=== PATIENT | female | born 1935 | race Caucasian/White ===

== ENCOUNTER → 2016-12-14 | Outpatient (CLI) | payer MEDICARE, OTHER | LOC: NC 09:23 | PROVIDERS: ATTEND Family Medicine | DX: I48.91 Unspecified atrial fibrillation (principal); I11.0 Hypertensive heart disease with heart failure; I50.9 Heart failure, unspecified; M06.00 Rheumatoid arthritis without rheumatoid factor, unspecified site; E03.9 Hypothyroidism, unspecified ==

== ENCOUNTER → 2017-05-27 | Outpatient (CLI) | payer MEDICARE, OTHER | END | disposition home or self-care (01) | LOC: NC 08:41 | PROVIDERS: ATTEND Family Medicine | DX: I50.9 Heart failure, unspecified (principal); I10 Essential (primary) hypertension; I48.91 Unspecified atrial fibrillation ==

== ENCOUNTER → 2017-09-29 | Outpatient (CLI) | payer MEDICARE, OTHER | END | disposition home or self-care (01) | LOC: GMA 17:19 | PROVIDERS: ATTEND Nurse Practitioner Family | DX: N39.0 Urinary tract infection, site not specified (principal); R10.84 Generalized abdominal pain ==

== ENCOUNTER → 2017-12-06 | Outpatient (CLI) | payer MEDICARE, OTHER ==
--- NOTE | 2017-12-06 15:33 | MRI ---
EXAM DESCRIPTION: Lumbar Spine w/o Contrast MRI. CLINICAL HISTORY: LUMBAR RADICULOPATHY COMPARISON: MRI lumbar spine 01/20/2011. TECHNIQUE: Multiplanar, multiple standard sequences, non contrast MRI, lumbar spine. FINDINGS: Patient has spondylosis and multiple levels of disc desiccation and facet degeneration. L1-L3 dextroscoliosis. L3-L5 levoscoliosis. L5-S1: Disc desiccation and trace posterior bulge with anterolisthesis. Mild bilateral facet arthrosis and posterior ligament hypertrophy. Mild right foraminal narrowing. Mild canal narrowing. L4-5: Disc desiccation posterior disc space loss. Accentuated disc space loss on the right contributing to scoliosis. Disc spur complex encroaching on the right foramen which is mildly stenotic. Moderate to severe right facet arthrosis. Mild canal narrowing and mild left foraminal narrowing. Hypertrophy of the posterior ligaments and mild arthrosis left facet. L3-4: Disc desiccation and minimal disc space loss. Posterior broad-based 3 mm disc bulge with mild canal narrowing. Bilateral ligament hypertrophy and facet arthrosis more right than left. Mild right foraminal narrowing. Mild to moderate left foraminal narrowing with disc abutting the nerve root. Schmorl's node in the endplates. L2-3: Severe disc space loss more on the left associated with dextroscoliosis. Anterior bulging of disc spur complex. Mild right foraminal narrowing, mild facet arthrosis and ligament hypertrophy. Narrowing of the transverse diameter of the canal. Minimal left ligament hypertrophy and facet arthrosis abutting the thecal sac. Moderate left foraminal narrowing with bony abutment of the nerve root. Conus terminates at L2. L1-2: Disc desiccation with significant disc space loss on the left associated with dextroscoliosis. Left side disc spur complex abutting the exiting nerve root with moderate foraminal narrowing. Right foramen is patent. Posterior ligament and facet hypertrophy more on the left. Anterior Modic type II endplate reactive changes anterior disc spur bulge. T12-L1: Disc desiccation with left side grade 1 Modic endplate reactive changes associated with dextroscoliosis. Posterior 4 mm disc bulge abutting the thoracic cord with mild to moderate canal narrowing. Moderate to severe foraminal narrowing. Right foramen patent. Bilateral facet and posterior ligament hypertrophy more on the left. T11-T12 disc also desiccated with minimal disc space loss minimal posterior bulge abutting the cord. Bright will circumscribed signal T11 vertebral body on all sequences. Paravertebral soft tissues show muscle atrophy.. Normal marrow signal in the draining vertebral bodies. Vertebral bodies are not compressed at any level. IMPRESSION: 1. Levels of spondylosis, degree of disc desiccation, degree of scoliosis, has increased since the prior study. 2. Right side disc spur complex at L4-5 causing mild canal stenosis. Correlate for right L4 radiculopathy. 3. Mild to moderate left L3-4 foraminal narrowing with disc abutting the nerve root. Correlate for left L3 radiculopathy. 4. Moderate left L2-3 foraminal narrowing with bony abutment of the exiting left L2 nerve root. 5. Left side disc spur complex L1-L2 abutting the exiting left L1 nerve root with moderate foraminal narrowing. Anterior spondylosis. 6. Posterior T12-L1 disc bulge. Moderate to severe left foraminal narrowing, abutting the left T12 nerve root. Electronically signed by: Norberto Reardon MD 12/06/2017 3:32 PM [facility]
== END | disposition home or self-care (01) ==
LOC: MRI 10:00
PROVIDERS: ATTEND Family Medicine
DX: M54.16 Radiculopathy, lumbar region (principal)

== ENCOUNTER → 2017-12-09 | Outpatient (CLI) | payer MEDICARE, OTHER ==
--- NOTE | 2017-12-09 16:12 | MRI ---
EXAM DESCRIPTION: Thoracic Spine w/o Contrast: MRI CLINICAL HISTORY: SCOLIOSIS COMPARISON: MRI lumbar spine 12/06/2017. TECHNIQUE: Multiplanar, multiple standard sequences, non contrast MRI, thoracic spine. FINDINGS: Well-circumscribed bright lesion in the T5 vertebral body on T1 and T2 sequences. Cortex is preserved Minimal bright signal on inversion recovery. Normal signal in the pedicles. Minimal desiccation of the T4-5 and T5-6 discs with minimal disc space loss at T5-6. No canal or foraminal stenosis at these levels with normal cord signal. Similar appearing lesion but much smaller in the T10 vertebral body to the left of midline. Cortex is preserved. Normal signal in the pedicles. Minimal bright signal inversion recovery sequence. Desiccation and tiny bulge of the T9-10 disc. Desiccation of the T10-11 disc. Canal and foramina are patent at both levels with no cord compression. Similar lesion in the T1 vertebral body, again well-circumscribed and located in the left posterior vertebral body and the base of the left pedicle. Cortex is preserved. Bright T1 and T2 sequences minimal bright signal inversion recovery. Similar lesion right posterior L4 vertebral body cortex preserved. Desiccated T3-4 disc. Arthropathy of the left costovertebral joint. Anterior mild spondylosis T10-11. Trace anterolisthesis. Bilateral facet arthrosis. Disc desiccation and posterior disc bulge T11-12 abutting the cord. Bilateral facet arthrosis more on the right than left Minimal disc space loss anterior and posterior disc bulging T12-L1 with T12-L1 disc almost abutting the cord. Bilateral facet arthrosis more left than right. Most of the remaining discs are desiccated but no significant bulging. Disc spaces are preserved. Canal and foramina are patent. Significant right dextro scoliosis T12-L3. Compensatory levoscoliosis T7-T12. No compression fractures. [id number] foraminal narrowing on the right from T8-9 to T11-T12. Facet joints are unremarkable. Conus terminates at T1-T2 Paravertebral soft tissues are unremarkable. Normal marrow signal in the remaining vertebral bodies and the posterior elements. Vertebral bodies are not compressed at any level. IMPRESSION: 1. Multiple vertebral body hemangiomas. 2. Compensatory levoscoliosis T7-T12 with primary curve is dextroscoliosis T12-L3. No compression fractures. 3. Spondylosis facet degeneration and foraminal narrowing associated with the scoliosis. Electronically signed by: Norberto Reardon MD 12/09/2017 4:10 PM [facility]
== END | disposition home or self-care (01) ==
LOC: MRI 10:00
PROVIDERS: ATTEND Family Medicine
DX: M41.9 Scoliosis, unspecified (principal)

== ENCOUNTER → 2018-02-28 | Outpatient (CLI) | payer MEDICARE, OTHER | END | disposition home or self-care (01) | LOC: NC 11:46 | PROVIDERS: ATTEND Family Medicine | DX: I48.91 Unspecified atrial fibrillation (principal); I11.9 Hypertensive heart disease without heart failure; I50.9 Heart failure, unspecified; M06.00 Rheumatoid arthritis without rheumatoid factor, unspecified site; K21.9 Gastro-esophageal reflux disease without esophagitis ==

== ENCOUNTER → 2018-03-23 | Outpatient (CLI) | payer MEDICARE, OTHER | LOC: RESP 14:22 | PROVIDERS: ATTEND Physician Assistant | DX: R55 Syncope and collapse (principal); I10 Essential (primary) hypertension; I48.0 Paroxysmal atrial fibrillation ==

== ENCOUNTER 2018-03-27 05:34 | Day surgery (SDC) | payer MEDICARE, OTHER ==
[2018-03-27] MEDS ORDERED: LIDOCAINE 1% PF 2 ML AMP INJ ONE (05:35)
[2018-03-27] MEDS ORDERED: TROP 1%/CYCLOPEN 1%/PHENYL 2% DROPS ONE (06:10)
[2018-03-27] MEDS: TOBRAMYCIN SULF 0.3 % OPHT SOL 1 DROP LEFT_EYE ONE ×2 (10:35→11:19)
[2018-03-27] MEDS: PROPARACAINE 0.5% OPHTH SOL 15 ML BTTL ONE ×2 (10:35→11:08)
[2018-03-27] MEDS ORDERED: MIDAZOLAM INJ 2 MG/2 ML VIAL ONE (11:01)
[2018-03-27] MEDS ORDERED: DEXAMETHASONE 0.1% OPHTH SOL 1 DROP LEFT_EYE ONE ×2 (11:18→11:31)
[2018-03-27] MEDS ORDERED: BRIMONIDINE 0.2% OPHTH DROPS LEFT_EYE ONE ×2 (11:19→11:31)
[2018-03-27] MEDS ORDERED: TOBRAMYCIN SULF 0.3 % OPHT SOL 1 DROP LEFT_EYE ONE (11:31)
[2018-03-27 14:42] VITALS: TEMP 97
[2018-03-27 15:00] VITALS: BP 124/69; O2SAT 93
== END 2018-03-27 12:15 | disposition home or self-care (01) ==
LOC: AMB 05:34
PROVIDERS: ATTEND Ophthalmology
DX: H25.12 Age-related nuclear cataract, left eye (principal); M06.9 Rheumatoid arthritis, unspecified; I10 Essential (primary) hypertension; K21.9 Gastro-esophageal reflux disease without esophagitis; K44.9 Diaphragmatic hernia without obstruction or gangrene; K59.01 Slow transit constipation; Z86.73 Personal history of transient ischemic attack (TIA), and cerebral infarction without residual deficits; Z88.5 Allergy status to narcotic agent; Z79.01 Long term (current) use of anticoagulants; Z79.899 Other long term (current) drug therapy
CPT/HCPCS: 00142; 66984; J2250

== ENCOUNTER 2018-04-10 05:24 | Day surgery (SDC) | payer MEDICARE, OTHER ==
[2018-04-10] MEDS ORDERED: PROPARACAINE 0.5% OPHTH SOL 15 ML BTTL ONE (05:54)
[2018-04-10] MEDS ORDERED: TROP 1%/CYCLOPEN 1%/PHENYL 2% DROPS ONE (05:54)
[2018-04-10] MEDS ORDERED: MIDAZOLAM INJ 2 MG/2 ML VIAL ONE (11:13)
[2018-04-10] MEDS ORDERED: LIDOCAINE 1% PF 2 ML AMP INJ ONE ×2 (11:20→11:36)
[2018-04-10] MEDS ORDERED: PROPARACAINE 0.5% OPHTH SOL 15 ML BTTL RIGHT_EYE ONE (11:20)
[2018-04-10] MEDS ORDERED: TOBRAMYCIN SULF 0.3 % OPHT SOL 1 DROP RIGHT_EYE ONE ×3 (11:21→11:43)
[2018-04-10] MEDS ORDERED: DEXAMETHASONE 0.1% OPHTH SOL 1 DROP RIGHT_EYE ONE ×3 (11:21→11:43)
[2018-04-10] MEDS ORDERED: BRIMONIDINE 0.2% OPHTH DROPS RIGHT_EYE ONE ×3 (11:21→11:43)
== END 2018-04-10 12:05 | disposition home or self-care (01) ==
LOC: AMB 05:24
PROVIDERS: ATTEND Ophthalmology
DX: H25.11 Age-related nuclear cataract, right eye (principal); I10 Essential (primary) hypertension; K21.9 Gastro-esophageal reflux disease without esophagitis; I48.91 Unspecified atrial fibrillation; G89.29 Other chronic pain; M54.9 Dorsalgia, unspecified; M25.50 Pain in unspecified joint; Z86.73 Personal history of transient ischemic attack (TIA), and cerebral infarction without residual deficits; Z79.01 Long term (current) use of anticoagulants; Z79.899 Other long term (current) drug therapy
CPT/HCPCS: 00142; 66984; J2250

== ENCOUNTER → 2018-09-04 | Outpatient (CLI) | payer MEDICARE, OTHER | LOC: NC 09:09 | PROVIDERS: ATTEND Family Medicine | DX: I48.0 Paroxysmal atrial fibrillation (principal); I11.0 Hypertensive heart disease with heart failure; I50.9 Heart failure, unspecified; M06.00 Rheumatoid arthritis without rheumatoid factor, unspecified site; I73.9 Peripheral vascular disease, unspecified ==

== ENCOUNTER 2018-10-16 09:04 | Observation (INO) | payer MEDICARE, OTHER ==
[2018-10-16] MEDS ORDERED: SODIUM CHLORIDE 0.9% 1000ML 1,000 ML IVS PRN ×2 (09:15→13:23)
[2018-10-16] MEDS ORDERED: ONDANSETRON INJ 4 MG/2 ML VIAL IV ONE (09:16)
--- NOTE | 2018-10-16 10:14 | ED.PDOC ---
History of Present Illness - General Chief Complaint: GI Problem Stated Complaint: nausea/vomiting Time Seen by Provider: 10/16/18 09:58 Source: patient Exam Limitations: no limitations - History of Present Illness Initial Comments: Patient presents with N/V/D for 14 hours. She has been unable to eat. She has mild abdominal pain that is generalized and aching. No particular timing nor context. No fever. No other complaints. No known sick contacts. Patient has atrial fibrillation controlled with Sotalol and she takes Eloquis. Timing/Duration: other - 14 hours Severity: moderate Improving Factors: nothing Worsening Factors: nothing Associated Symptoms: denies symptoms Allergies/Adverse Reactions: Allergies Codeine Adverse Reaction (Severe, Verified 10/16/18 11:37) Nausea Home Medications: Ambulatory Orders Gabapentin [Neurontin] 300 mg PO HS 02/22/14 Polyethylene Glycol 3350 [Miralax] 17 gm PO AM 02/22/14 Digoxin 0.125 mg PO DAILY #0 tab 02/23/14 Sotalol HCl 80 mg PO BID #0 tab 02/23/14 Apixaban [Eliquis] 5 mg PO BID 10/16/18 Calcium Carb 500Mg-Vitamin D [Oscal 500mg w/D] 500 mg PO DAILY 10/16/18 Diphenhydramine HCl 25 mg PO BEDTIME 10/16/18 Duloxetine HCl 30 mg PO BID 10/16/18 Furosemide [Lasix] 40 mg PO DAILY 10/16/18 HYDROcodone 10MG/APAP 325MG [[place] 10/325] 1 tab PO Q6H PRN 10/16/18 Hydroxyzine HCl 25 mg PO Q4HR PRN 10/16/18 Multiple Vitamin [Multi Vitamin] 1 tab PO DAILY 10/16/18 Omeprazole [Omeprazole Dr] 40 mg PO BID 10/16/18 Potassium Gluconate 595 mg PO DAILY 10/16/18 Prednisone 5 mg PO JOSH-OTH-DAY 10/16/18 Review of Systems - Review of Systems Constitutional: States: no symptoms reported EENTM: States: no symptoms reported Respiratory: States: no symptoms reported Cardiology: States: no symptoms reported Gastrointestinal/Abdominal: States: see HPI Genitourinary: States: no symptoms reported Musculoskeletal: States: no symptoms reported Skin: States: no symptoms reported Neurological: States: no symptoms reported Endocrine: States: no symptoms reported Hematologic/Lymphatic: States: no symptoms reported Past Medical History (General) - Patient Medical History Hx Seizures: No Hx Stroke: Yes - TIA Hx Asthma: No Hx of COPD: No Hx Cardiac Disorders: Yes - atrial fibrillation Hx Congestive Heart Failure: Yes Hx Pacemaker: No Hx Hypertension: Yes Hx Thyroid Disease: Yes Hx Diabetes: No Hx Gastroesophageal Reflux: Yes Hx MRSA: No MRSA Source:: Wound - Vaccination History Hx Influenza Vaccination: Yes - 2016 Hx Pneumococcal Vaccination: Yes - unknown date - Social History Hx Tobacco Use: No Hx Alcohol Use: No Hx Substance Use: No Hx Physical Abuse: No Hx Emotional Abuse: No Family Medical History - Family History Mother Family History: No Known Living Status: Physical Exam - Physical Exam General Appearance: Alert Eye Exam: bilateral normal Ears, Nose, Throat: normal ENT inspection Neck: non-tender, full range of motion, supple Respiratory: lungs clear, normal breath sounds Cardiovascular/Chest: normal peripheral pulses, regular rate, rhythm, no edema Gastrointestinal/Abdominal: normal bowel sounds, non tender, soft Back Exam: normal inspection, no CVA tenderness Extremity: normal range of motion, normal inspection Neurologic: ccna II-XII nml as tested, no motor/sensory deficits, alert, normal mood/affect, oriented x 3 Skin Exam: normal color Lymphatic: no adenopathy Progress - Progress Progress: 10/16/18 15:41 Laboratory Tests 10/16/18 10/16/18 10/16/18 09:20 09:20 09:20 WBC 11.9 H RBC 5.22 Hgb 15.6 Hct 47.5 H MCV 90.9 MCH 29.8 MCHC 32.8 L RDW 13.8 Plt Count 239 MPV 8.6 Absolute Neuts (auto) 10.60 H Absolute Lymphs (auto) 0.50 L Absolute Monos (auto) 0.80 Absolute Eos (auto) 0.00 Absolute Basos (auto) 0.00 Neutrophils % 88.9 H Lymphocytes % 4.0 L Monocytes % 6.5 Eosinophils % 0.4 L Basophils % 0.2 PT INR PTT (SP) Sodium Potassium Chloride Carbon Dioxide Anion Gap BUN Creatinine BUN/Creatinine Ratio Random Glucose Serum Osmolality Calcium Creatine Kinase CK-MB (CK-2) CK-MB (CK-2) % Troponin I B-Natriuretic Peptide 46.9 Lipase < 14 L Stool Occult Blood 10/16/18 10/16/18 10/16/18 09:20 09:20 09:20 WBC RBC Hgb Hct MCV MCH MCHC RDW Plt Count MPV Absolute Neuts (auto) Absolute Lymphs (auto) Absolute Monos (auto) Absolute Eos (auto) Absolute Basos (auto) Neutrophils % Lymphocytes % Monocytes % Eosinophils % Basophils % PT 10.2 INR 1.02 PTT (SP) 25.3 Sodium 139 Potassium 3.6 Chloride 101 Carbon Dioxide 28 Anion Gap 13.6 BUN 18 Creatinine 0.49 L BUN/Creatinine Ratio 36.7 H Random Glucose 149 H Serum Osmolality 282.2 Calcium 9.3 Creatine Kinase 118 CK-MB (CK-2) 2.5 CK-MB (CK-2) % Not Reportable Troponin I < 0.02 B-Natriuretic Peptide Lipase Stool Occult Blood 10/16/18 10/16/18 09:20 09:40 WBC RBC Hgb Hct MCV MCH MCHC RDW Plt Count MPV Absolute Neuts (auto) Absolute Lymphs (auto) Absolute Monos (auto) Absolute Eos (auto) Absolute Basos (auto) Neutrophils % Lymphocytes % Monocytes % Eosinophils % Basophils % PT INR PTT (SP) Sodium Potassium Chloride Carbon Dioxide Anion Gap BUN Creatinine BUN/Creatinine Ratio Random Glucose Serum Osmolality Calcium Creatine Kinase CK-MB (CK-2) CK-MB (CK-2) % Troponin I B-Natriuretic Peptide 43.9 Lipase Stool Occult Blood Negative Patient's bnp was 46. She was given one liter NS bolus and zofran 4 mg IV x one. The zofran was not very effective so she was given Phenergan 12.5 mg IV x one. She still had coffee ground emesis at that point, possible from gastritis. This could be exacerbated by her anticoagulant regimen. She was given Sotalol and Digoxin to see if she could hold down her oral medications. She was admitted for observation since she still was vomiting and there is a risk of her being in atrial fibrillation with RVR if she cannot keep her medications down. The patient was informed of this plan. Questions were elicited and answered. The patient voiced understanding and agreement with this plan. Departure - Departure Clinical Impression: Nausea & vomiting, Hematemesis Disposition: Admit Patient Condition: Fair Departure Forms: ED Discharge - Pt. Copy, Patient Portal Self Enrollment Diet: resume usual diet Activity: increase activity as tolerated Referrals: Zaid Day MD [Primary Care Provider] - 1-2 Weeks Home Medications: Ambulatory Orders Gabapentin [Neurontin] 300 mg PO HS 02/22/14 Polyethylene Glycol 3350 [Miralax] 17 gm PO AM 02/22/14 Digoxin 0.125 mg PO DAILY #0 tab 02/23/14 Sotalol HCl 80 mg PO BID #0 tab 02/23/14 Apixaban [Eliquis] 5 mg PO BID 10/16/18 Calcium Carb 500Mg-Vitamin D [Oscal 500mg w/D] 500 mg PO DAILY 10/16/18 Diphenhydramine HCl 25 mg PO BEDTIME 10/16/18 Duloxetine HCl 30 mg PO BID 10/16/18 Furosemide [Lasix] 40 mg PO DAILY 10/16/18 HYDROcodone 10MG/APAP 325MG [[place] ] 1 tab PO Q6H PRN 10/16/18 Hydroxyzine HCl 25 mg PO Q4HR PRN 10/16/18 Multiple Vitamin [Multi Vitamin] 1 tab PO DAILY 10/16/18 Omeprazole [Omeprazole Dr] 40 mg PO BID 10/16/18 Potassium Gluconate 595 mg PO DAILY 10/16/18 Prednisone 5 mg PO JOSH-OTH-DAY 10/16/18
[2018-10-16] MEDS ORDERED: PROMETHAZINE HCL INJ 12.5 MG in SODIUM CHLORIDE 0.9% 50ML 50 ML IVPB ONE (10:58)
[2018-10-16] MEDS ORDERED: PROMETHAZINE HCL INJ 25 MG/ML VIAL ONE (11:01)
[2018-10-16] MEDS ORDERED: SODIUM CHLORIDE 0.9% 50ML 50 ML ONE (11:01)
--- NOTE | 2018-10-16 11:39 | CT ---
EXAM DESCRIPTION: CT abdomen and pelvis with contrast CLINICAL HISTORY: Diffuse abdominal pain COMPARISON: 06/17/2011 TECHNIQUE: Spiral CT with multiplanar reformatted images. Intravenous iodinated nonionic contrast This exam was performed according to our departmental dose-optimization program, which includes automated exposure control, adjustment of the mA and/or kV according to patient size and/or use of iterative reconstruction technique. FINDINGS: Interval development of large sliding-type hiatal hernia. No focal abnormality of the stomach Fluid throughout the small intestine. Small volume of fluid in the ascending colon. No wall thickening, mass lesion or focal inflammatory process seen in the small intestine or terminal ileum. Numerous diverticula of the sigmoid colon without surrounding inflammation to diagnose diverticulitis No abnormality of the omentum, mesentery or retroperitoneum No abdominal visceral mass lesion to suggest primary neoplasm or metastatic disease Normal appearance of the gallbladder. No biliary or pancreatic duct dilation No pelvic soft tissue mass lesion, adenopathy or free fluid. No abnormality of the urinary bladder Mild osteoarthritis bilateral hips. Severe multilevel degenerative change in the thoracolumbar spine with dextroscoliosis IMPRESSION: Moderate size sliding-type hiatal hernia Sigmoid diverticulosis without diverticulitis No diagnostic acute inflammatory process Electronically signed by: Tavo Hall MD 10/16/2018 11:37 AM [facility]
[2018-10-16] MEDS ORDERED: SOTALOL 80 MG TAB PO ONE (14:30)
[2018-10-16] MEDS ORDERED: DIGOXIN 0.25 MG TAB PO ONE (14:31)
--- NOTE | 2018-10-16 16:08 | HP ---
SUPERVISING PHYSICIAN: Zaid Day M.D. CHIEF COMPLAINT: Nausea and vomiting. HISTORY OF PRESENT ILLNESS: This is a patient who lives in an assisted living and has had nausea, vomiting and diarrhea since last night. Overnight it got to the point that she had to have some assistance at her residence and she was sent to the Emergency Room this morning for intractable nausea, vomiting and diarrhea. In the E. R., she receive several liters of fluids as well as some antiemetics. She does have a history of atrial fibrillation. She tolerated her Sotalol without any problems. Her laboratory showed electrolytes were within normal limits. Creatinine was slightly low at 0.49. Lipase was less than 14, BNP was 46.9. WBCs were 11,900 with hemoglobin 15.6, hematocrit 47.5. She had a left leg shift on differential. Stool for occult blood was negative. Digoxin was 0.6. Stool culture as well as ova and parasites are pending. Clostridium Difficile was negative antigen and negative toxin. CT of the abdomen and pelvis showed moderate sized sliding type hiatal hernia with sigmoid diverticulosis without diverticulitis. No diagnostic acute inflammatory process. I was called for admission to the hospital. PAST MEDICAL HISTORY: 1. Gastroesophageal reflux disease. 2. Mild hypertension. 3. Atrial fibrillation. 4. Diverticulosis. 5. Hiatal hernia. 6. Polymyalgia rheumatica. 7. Rheumatoid arthritis. 8. Spinal stenosis. 9. Thyroid nodule. 10. Depression. 11. Chronic pain syndrome on [place]. 12. Mild congestive heart failure, unknown etiology. No current echocardiogram to review. PAST SURGICAL HISTORY: 1. Appendectomy. 2. section. 3. Open reduction and internal fixation of right ankle. 4. Hysterectomy. 5. Tonsillectomy and adenoidectomy. 6. Exploratory laparotomy. 7. Partial thyroidectomy. 8. Epidural steroid injection of the lumbar spine. OUTPATIENT MEDICATIONS: Per the EMR and awaiting verification. ALLERGIES: NO KNOWN DRUG ALLERGIES. FAMILY HISTORY: Positive for lung cancer, hyperlipidemia and type 2 diabetes. SOCIAL HISTORY: She is retired. She lives at [facility]. She has 2 children. She denies any ETOH, tobacco or illicit drug use. REVIEW OF SYSTEMS: GENERAL: Positive for fatigue. Negative for fever or weight changes. HEENT: Negative for sinus symptoms, ear pain, vision changes or sore throat. RESPIRATORY: Negative for coughing, wheezing or shortness of breath. CARDIAC: Negative for chest pain, palpitations or tachycardia. GASTROINTESTINAL: As per History of Present Illness. GENITOURINARY: Negative for hematuria, dysuria or polyuria. MUSCULOSKELETAL: Positive for chronic back pain. Negative for myalgias or arthralgias. SKIN: Negative for rashes or lesions. NEUROLOGIC: Negative for headaches, dizziness or seizures. PHYSICAL EXAMINATION: VITAL SIGNS: Temperature 98.7, pulse rate 110, blood pressure 159/96, respiratory rate 18, O2 sat 92% on room air. GENERAL: This is an 83 year-old female patient lying in her hospital bed. She looks to be moderately ill. HEENT: Normocephalic and atraumatic. Pupils are equal and reactive. Oropharynx is clear. Oral mucous membranes are slightly dry. NECK: Supple without mass. RESPIRATORY: Essentially clear to auscultation bilaterally. CHEST: There is equal rise and fall of the chest with inspiration and expiration. CARDIOVASCULAR: Regular rate and rhythm. GASTROINTESTINAL: Abdomen is soft. It is diffusely tender. There is no rebound tenderness. Bowel sounds are positive. EXTREMITIES: No clubbing, cyanosis or edema. NEUROLOGIC: She is awake, alert and oriented times three. LABORATORY: Labs and films are as per History of Present Illness. ASSESSMENT: 1. Gastroenteritis with nausea and vomiting. 2. Mild dehydration secondary to #1. 3. Chronic pain syndrome on [place] routinely. 4. History of atrial fibrillation on Sotalol and digoxin. 5. Gastroesophageal reflux disease. 6. History of rheumatoid arthritis. 7. Spinal stenosis. 8. Mild hypertension. PLAN: We will place the patient in Observation. She will have antiemetics for her nausea as well as some IV fluids overnight. I put her on Protonix for ulcer prophylaxis. Will do routine lab in the morning. At this point she is not taking anything p.o. but we can advance her diet slowly as tolerated. I have also given her some Dilaudid for pain control. Hopefully she can be discharged tomorrow or the next day. Will monitor closely and follow as needed. #[id number] [facility]
[2018-10-16] MEDS ORDERED: SODIUM CHLORIDE 0.9% (FLUSH) 10 ML SYG IV PRN (16:55)
[2018-10-16] MEDS ORDERED: PROMETHAZINE HCL INJ 25 MG in SODIUM CHLORIDE 0.9% 50ML 50 ML IVPB PRN (16:58)
[2018-10-16] MEDS ORDERED: IV SET AND CAP CHANGE INJ INJ SCH (17:00)
[2018-10-16] MEDS: ONDANSETRON INJ 4 MG/2 ML VIAL IV PRN (17:07)
[2018-10-16] MEDS: PANTOPRAZOLE SODIUM IV 40 MG VIAL IV SCH (17:41)
[2018-10-16] MEDS: KCL 20MEQ/D5 1/2NS 1,000 ML IVS PRN (18:17)
[2018-10-16] MEDS: HYDROmorphone HCL INJ 2 MG/ML VIAL IV PRN (18:45)
[2018-10-16] MEDS: SOTALOL 80 MG TAB PO SCH (21:03)
[2018-10-16] MEDS: SODIUM CHLORIDE 0.9% (FLUSH) 10 ML SYG IV SCH (21:04)
[2018-10-17] MEDS: HYDROmorphone HCL INJ 2 MG/ML VIAL IV PRN ×4 (00:39→17:46)
[2018-10-17] MEDS: KCL 20MEQ/D5 1/2NS 1,000 ML IVS PRN (04:02)
[2018-10-17] MEDS: SODIUM CHLORIDE 0.9% (FLUSH) 10 ML SYG IV SCH ×2 (09:00→21:11)
[2018-10-17] MEDS: SOTALOL 80 MG TAB PO SCH ×2 (09:06→21:10)
[2018-10-17] MEDS: DIGOXIN 0.125 MG TAB PO SCH (09:06)
[2018-10-17] MEDS ORDERED: POTASSIUM CHLORIDE 20 MEQ TAB PO ONE (09:35)
[2018-10-17] MEDS: BIFIDOBACTERIUM INFANTIS 4 MG CAP PO SCH ×2 (11:06→21:10)
[2018-10-17] MEDS: FUROSEMIDE 40 MG TAB PO SCH (11:06)
--- NOTE | 2018-10-17 13:22 | PN ---
SUPERVISING PHYSICIAN: Zaid Day MD DATE: 10/17/18 SUBJECTIVE: The patient is lying in bed and visiting with family members. She complains that she is still quite weak, but has not vomited since during the night and has tolerated her full liquid diet without any problem. She is also taking p.o. fluids without any problems or nausea. She denies any shortness of breath or chest pain, constipation, vomiting or diarrhea. OBJECTIVE: VITAL SIGNS: Temperature 97.9. Heart rate 97, it had been as high as 103. Blood pressure 124/71. Respiratory rate 20. O2 saturation 92% on room air. RESPIRATORY: Essentially clear to auscultation bilaterally. CARDIAC: Regular rate and rhythm. GASTROINTESTINAL: Abdomen is soft, nondistended. It is diffusely and mildly tender. There is no rebound tenderness. Bowel sounds are positive. NEUROLOGIC: Awake, alert and oriented times three. LABORATORY: WBCs have normalized to 8,000 with hemoglobin 12.4, hematocrit 37.4. There is no shift on differential. Sodium 141, potassium slightly low at 3.4, chloride 109, carbon dioxide 28, BUN 18, creatinine 0.57. Glucose 105. Gastric occult blood is positive. Other stool testing is pending. All other labs and films have been reviewed via the EMR. ASSESSMENT: 1. Gastroenteritis with nausea and vomiting, improved. 2. Mild dehydration secondary to #1. 3. Chronic pain syndrome on [place] routinely. 4. History of atrial fibrillation on Sotalol and digoxin. 5. Gastroesophageal reflux disease. 6. History of rheumatoid arthritis. 7. Spinal stenosis. 8. Mild hypertension. PLAN: We will continue present supportive care. I have advanced her diet to full liquids and restarted her home medications. We will advance her diet as she tolerates. I have discontinued her IV fluids. She had an EGD done about one month ago that was basically negative. We will also monitor her stool studies as they are resulted. I have put her on Align. I will do lab in the morning. We will continue to push p.o. fluids. I have also ordered ambulation 4 times daily. We will continue to monitor the patient closely and follow as needed. Hopefully, she can be discharged tomorrow. Dr. Day is the collaborating physician and available for consultation. #[id number] [facility]
[2018-10-17] MEDS: PANTOPRAZOLE SODIUM IV 40 MG VIAL IV SCH (15:59)
[2018-10-17] MEDS: ONDANSETRON INJ 4 MG/2 ML VIAL IV PRN (17:24)
[2018-10-17] MEDS ORDERED: GABAPENTIN 300 MG CAP PO SCH (21:00)
[2018-10-17] MEDS: DULoxetine HCL 30 MG CAP PO SCH (21:10)
[2018-10-17] MEDS: APIXABAN 2.5 MG TAB PO SCH (21:10)
[2018-10-18 06:43] VITALS: TEMP 97.4
[2018-10-18] MEDS: FUROSEMIDE 40 MG TAB PO SCH (08:44)
[2018-10-18] MEDS: DULoxetine HCL 30 MG CAP PO SCH (08:44)
[2018-10-18] MEDS: SOTALOL 80 MG TAB PO SCH (08:44)
[2018-10-18] MEDS: APIXABAN 2.5 MG TAB PO SCH (08:44)
[2018-10-18] MEDS: BIFIDOBACTERIUM INFANTIS 4 MG CAP PO SCH (08:44)
[2018-10-18] MEDS: DIGOXIN 0.125 MG TAB PO SCH (08:44)
[2018-10-18] MEDS: SODIUM CHLORIDE 0.9% (FLUSH) 10 ML SYG IV SCH (08:45)
[2018-10-18] MEDS ORDERED: HYDROcodone 10MG/APAP 325MG 1 EA TAB PO PRN (08:50)
[2018-10-18] MEDS ORDERED: POLYETHYLENE GLYCOL 3350 17 GM PCKT PO SCH (09:00)
[2018-10-18 10:33] VITALS: BP 130/73; O2SAT 94
--- NOTE | 2018-10-18 15:41 | DS ---
SUPERVISING PHYSICIAN: Zaid Day M.D. DISCHARGE DIAGNOSIS: 1. Gastroenteritis with nausea and vomiting that has improved. 2. Mild dehydration secondary to #1 that has improved. 3. Chronic pain syndrome on [place] routinely. 4. History of atrial fibrillation on Sotalol and digoxin. 5. Gastroesophageal reflux disease. 6. History of rheumatoid arthritis. 7. Spinal stenosis. 8. Mild hypertension, stable. HISTORY OF PRESENT ILLNESS: This is an 83 year-old female patient who lives in an assisted living center here in [facility]. She has had nausea and vomiting for approximately 24 hours prior to her admission to the Emergency Room. Her nausea and vomiting had gotten to the point that she had to have assistance at her residence and was eventually sent to the Emergency Room due to intractable nausea and vomiting with diarrhea. In the E. R., she received several liters of fluids as well as some antiemetics. She does have a history of atrial fibrillation. She was given her Sotalol in the Emergency Room without any problems. Her laboratory showed electrolytes were within normal limits. Creatinine was slightly low at 0.49. Lipase was less than 14, BNP was 46.9. WBCs were 11,900 with hemoglobin 15.6, hematocrit 47.5. Her differential showed a left shift. Her stool was sent for stool studies. Her occult blood was negative. Her Clostridium Difficile was negative for antigen and negative for toxin. Stool cultures and stool for ova and parasites were pending. Digoxin was 0.6. CT of the abdomen and pelvis showed moderate sized sliding type hiatal hernia with sigmoid diverticulosis without diverticulitis. No diagnostic acute inflammatory process noted. I was called for admission to the hospital. HOSPITAL COURSE: The patient was placed on bowel rest and given additional fluids. Her home medications were held with the exception of her digoxin and Sotalol which she tolerated without problems. Antiemetics were also given and she was given Dilaudid for pain. Over the next 24 hours her diet was advanced. Last night she had a full liquid and tolerated it without problem, except she did have several bouts of diarrhea and emesis after eating ice cream yesterday evening. Today, she has had no further complaints of vomiting or diarrhea. She does continue to have occasional complaints of nausea. WBCs have normalized to 5700 with hemoglobin 12.5, hematocrit 37.5. Sodium 141, potassium 3.2. She did receive some potassium supplementation today. She still has several stool studies that are pending. Her IV pain medication was discontinued and her p.o. pain medications were restarted. She has tolerated those without problems. The patient will be discharged back to assisted living today with close followup with her primary care physician, Dr. Zaid Day. DISCHARGE PLAN: The patient will be discharged to [facility]. She has a followup with her GI specialist, Dr. Hernandez next week. Then she has a hospital followup appointment with Dr. Day on 10/30/18 at 11:00 AM. She is encouraged to refrain from taking NSAIDs. I have also called her physician's office and had them call her in some [facility] for nausea which they have agreed to do. She is to return to the hospital or call Dr. Day' office for any problems or complications. Her home medications have been restarted. DISCHARGE MEDICATIONS: 1. Gabapentin. 2. MiraLAX. 3. Digoxin. 4. Sotalol. 5. Multivitamin. 6. Vitamin D and calcium. 7. Diphenhydramine. 8. Furosemide. 9. Omeprazole. 10. Potassium gluconate. 11. Hydroxyzine. 12. Hydrocodone. 13. Prednisone. 14. Duloxetine. 15. Eliquis. 16. Zofran. #[id number] MTDD
[2018-10-19] MEDS ORDERED: predniSONE 5 MG TAB PO SCH (09:00)
== END 2018-10-18 13:00 | disposition home or self-care (01) ==
LOC: ER 09:04 → MS 16:06
PROVIDERS: ADMIT Nurse Practitioner Acute Care; ATTEND Nurse Practitioner Acute Care
DX: K52.9 Noninfective gastroenteritis and colitis, unspecified (principal); E86.0 Dehydration; G89.4 Chronic pain syndrome; E87.6 Hypokalemia; I48.91 Unspecified atrial fibrillation; K21.9 Gastro-esophageal reflux disease without esophagitis; M06.9 Rheumatoid arthritis, unspecified; I11.0 Hypertensive heart disease with heart failure; I50.9 Heart failure, unspecified; M48.00 Spinal stenosis, site unspecified; K44.9 Diaphragmatic hernia without obstruction or gangrene; K57.30 Diverticulosis of large intestine without perforation or abscess without bleeding; M35.3 Polymyalgia rheumatica; F32.9 Major depressive disorder, single episode, unspecified; E07.9 Disorder of thyroid, unspecified; Z79.01 Long term (current) use of anticoagulants; Z79.891 Long term (current) use of opiate analgesic; Z79.52 Long term (current) use of systemic steroids; Z79.899 Other long term (current) drug therapy; Z86.73 Personal history of transient ischemic attack (TIA), and cerebral infarction without residual deficits
CPT/HCPCS: 96361 ×2; 96366 ×2; 96367; 96365; 96375 ×2; 96376 ×2; J1170 ×5; J2405 ×3; J2550; J7030 ×2; A4216; 80048 ×2; 82270; 82553; 80053; 82271; 83986; 36415 ×5; 81001; 85025 ×3; 82550; 87045; 87046; 80162; 83690; 83735; 87177; 87209; 85730; 85610; 84484; 83880 ×2; 87324; 74177; 94760 ×3; 99285; 93005; 87449

== ENCOUNTER → 2018-10-20 | Outpatient (CLI) | payer MEDICARE, OTHER | LOC: NC 11:12 | PROVIDERS: ATTEND Family Medicine | DX: I48.0 Paroxysmal atrial fibrillation (principal); I50.9 Heart failure, unspecified; K21.9 Gastro-esophageal reflux disease without esophagitis ==

== ENCOUNTER → 2019-01-09 | Outpatient (CLI) | payer MEDICARE, OTHER | LOC: NC 08:56 | PROVIDERS: ATTEND Family Medicine | DX: I48.0 Paroxysmal atrial fibrillation (principal); I11.0 Hypertensive heart disease with heart failure; I50.9 Heart failure, unspecified; M06.00 Rheumatoid arthritis without rheumatoid factor, unspecified site; I48.92 Unspecified atrial flutter ==

== ENCOUNTER → 2019-04-23 | Outpatient (CLI) | payer MEDICARE, OTHER | LOC: NC 15:09 | PROVIDERS: ATTEND Family Medicine | DX: I48.0 Paroxysmal atrial fibrillation (principal); I11.0 Hypertensive heart disease with heart failure; I50.9 Heart failure, unspecified; I48.92 Unspecified atrial flutter ==

== ENCOUNTER → 2019-07-19 | Outpatient (CLI) | payer MEDICARE, OTHER | LOC: NC 09:00 | PROVIDERS: ATTEND Family Medicine | DX: I48.0 Paroxysmal atrial fibrillation (principal); I11.0 Hypertensive heart disease with heart failure; I50.9 Heart failure, unspecified; I48.92 Unspecified atrial flutter; E78.5 Hyperlipidemia, unspecified ==

== ENCOUNTER → 2019-07-26 | Outpatient (CLI) | payer MEDICARE, OTHER ==
--- NOTE | 2019-07-27 12:59 | CT ---
EXAM DESCRIPTION: Abdomen/Pelvis w/Contrast: Computed Tomography. CLINICAL HISTORY: 84 years Female epigastric abdominal tenderness COMPARISON: CT scan of abdomen and pelvis with contrast 10/16/2018. TECHNIQUE: Spiral-axial scans at 5 x 5 mm intervals through the abdomen and pelvis, after nonionic IV contrast without oral contrast. Coronal and sagittal 2.0 mm reconstructions. No delayed scans. No adverse reactions. Total Exam DLP: 535.74 mGy-cm. This exam was performed according to our departmental dose-optimization program which includes automated exposure control, adjustment of the mA and/or kV according to patient size and/or use of iterative reconstruction technique; to reduce radiation dose to as low as reasonably achievable (ALARA). FINDINGS: Lung bases and pleura: Negative. Liver, Stomach, Spleen, Adrenal Glands: Moderate hiatal hernia. Solid organs negative. Pancreas, Gallbladder, Ducts: Questionable thickening of the gallbladder wall. Duct negative. Small fatty pancreas. 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 Stable from the prior study. Mesentery: No free air or free fluid. No fatty stranding or fascial thickening. Aorta: Extremely tortuous aorta with minimal atherosclerotic calcifications. Minimal atherosclerotic calcifications of the common iliac arteries. No aneurysm or periaortic mass. Small Bowel: Negative. Terminal Ileum/Cecum: Normal caliber with appendix not seen. Small air-fluid level. No inflammatory changes. Colon: Air-fluid level ascending colon and redundant ascending colon and hepatic flexure. Low position of the transverse colon. Multiple diverticula sigmoid colon with no complications. Pelvic Organs: Urinary bladder distended with no radiodense stones, no prominent intrinsic masses or calcification. No fluid in the cul-de-sac. Uterus and ovaries not seen. Spine and Bony Pelvis: Marked dextroscoliosis lumbar is the primary curve with secondary lumbosacral and thoracolumbar levoscoliosis. Spondylosis at multiple levels of the lumbar spine. Multiple levels of significant canal and foraminal narrowing and canal and foraminal stenosis. Abdominal Wall/Back Soft Tissues: Small densities in the right buttock adipose tissue. No abdominal wall hernias. No change from the prior study. IMPRESSION: 1. Moderate hiatal hernia is stable since the prior study. 2. Thickening of the gallbladder wall stable with no surrounding inflammatory changes. 3. Diffuse fluid seen in the small bowel the prior study is no longer present. Diverticulosis of the sigmoid colon without complications stable since the prior study. 3. Severe degenerative thoracolumbosacral scoliosis with significant canal or foraminal narrowing at multiple levels, stable since the prior study.. Electronically signed by: Norberto Reardon MD 07/27/2019 12:57 PM CDT
== END ==
LOC: CT 14:23
PROVIDERS: ATTEND Family Medicine
DX: K44.9 Diaphragmatic hernia without obstruction or gangrene (principal); K57.30 Diverticulosis of large intestine without perforation or abscess without bleeding; K87 Disorders of gallbladder, biliary tract and pancreas in diseases classified elsewhere; M41.85 Other forms of scoliosis, thoracolumbar region

== ENCOUNTER → 2019-09-17 | Outpatient (CLI) | payer MEDICARE, OTHER | LOC: NC 14:57 | PROVIDERS: ATTEND Family Medicine | DX: R30.0 Dysuria (principal) ==

== ENCOUNTER → 2020-01-31 | Outpatient (CLI) | payer MEDICARE, OTHER | DX: R06.02 Shortness of breath (principal); I11.0 Hypertensive heart disease with heart failure; I50.9 Heart failure, unspecified; I48.0 Paroxysmal atrial fibrillation; M06.00 Rheumatoid arthritis without rheumatoid factor, unspecified site; E78.5 Hyperlipidemia, unspecified ==

== ENCOUNTER → 2020-05-21 | Outpatient (CLI) | payer MEDICARE, OTHER | LOC: NC 09:19 | PROVIDERS: ATTEND Family Medicine | DX: E03.9 Hypothyroidism, unspecified (principal) ==

== ENCOUNTER → 2020-10-24 | Outpatient (CLI) | payer MEDICARE, OTHER | LOC: NC 14:46 | PROVIDERS: ATTEND Family Medicine | DX: I10 Essential (primary) hypertension (principal); I50.9 Heart failure, unspecified; I48.0 Paroxysmal atrial fibrillation ==

== ENCOUNTER 2020-12-01 09:20 | Observation (INO) | payer MEDICARE, OTHER ==
--- NOTE | 2020-12-01 10:25 | RAD ---
EXAM DESCRIPTION: Abdomen Series CLINICAL HISTORY: 85 years Female, cough, nausea COMPARISON: None. Findings: 3 view(s)/radiograph(s) No acute cardiopulmonary abnormality. The chest is clear. No free air beneath the diaphragm. Nonobstructive bowel gas pattern. No suspicious calcification. No free air. No air-fluid level. Small stool volume. Scoliosis. No acute osseous abnormality. IMPRESSION: No acute radiographic abnormality. Electronically signed by: Mick Najera MD 12/01/2020 10:23 AM [facility]
[2020-12-01] MEDS ORDERED: cefTRIAXone SODIUM 1 GM in SODIUM CHL 0.9% 50ML MIN-BAG+ 50 ML IVPB ONE (11:13)
[2020-12-01] MEDS ORDERED: DEXAMETHASONE INJ 10 MG/ML VIAL IV ONE (11:13)
[2020-12-01] MEDS ORDERED: REMDESIVIR 200 MG in SODIUM CHLORIDE 0.9% 250ML 250 ML IVPB ONE (11:13)
[2020-12-01] MEDS ORDERED: AZITHROMYCIN IV 500 MG in SODIUM CHLORIDE 0.9% 250ML 250 ML IVPB ONE (11:13)
--- NOTE | 2020-12-01 11:26 | ED.PDOC ---
History of Present Illness - General Chief Complaint: Respiratory Problem Stated Complaint: SOB, body aches, cough Time Seen by Provider: 12/01/20 09:35 Source: patient, family Exam Limitations: no limitations - History of Present Illness Initial Comments: The patient is a 85-year-old female presented emergency room secondary to cough mild shortness of breath for last 2-3 days. Questionable low-grade fevers. No objective fevers. She has had some nausea but no vomiting. Mild decreased oral intake. 1 or 2 episodes of diarrhea. No real abdominal pain. No syncope. No chest pain. No palpitations. She does have a history of atrial fibrillation and is on Eliquis and heart rate control medications. No syncope. No falls. Oxygen saturations dropped to 86% at rest while I am interviewing her. Timing/Duration: other - 3 days Severity: moderate Improving Factors: nothing Worsening Factors: nothing Associated Symptoms: cough, fever/chills, loss of appetite, malaise, nausea/vomiting, shortness of breath Allergies/Adverse Reactions: Allergies Codeine Adverse Reaction (Severe, Verified 12/01/20 10:17) Nausea Home Medications: Ambulatory Orders Gabapentin [Neurontin] 300 mg PO HS 02/22/14 Polyethylene Glycol 3350 [Miralax] 17 gm PO AM 02/22/14 Digoxin 0.125 mg PO DAILY #0 tab 02/23/14 Sotalol HCl 80 mg PO BID #0 tab 02/23/14 Apixaban [Eliquis] 5 mg PO BID 10/16/18 Calcium Carb 500Mg-Vitamin D [Oscal 500 + D] 500 mg PO DAILY 10/16/18 Diphenhydramine HCl 25 mg PO BEDTIME 10/16/18 Duloxetine HCl 30 mg PO BID 10/16/18 Furosemide [Lasix] 40 mg PO DAILY 10/16/18 HYDROcodone 10MG/APAP 325MG [[place] 10/325] 1 tab PO QID PRN 10/16/18 Hydroxyzine HCl 25 mg PO Q4HR PRN 10/16/18 Multiple Vitamin [Multi Vitamin] 1 tab PO DAILY 10/16/18 Omeprazole [Omeprazole Dr] 40 mg PO BID 10/16/18 Potassium Gluconate 595 mg PO DAILY 10/16/18 Prednisone 5 mg PO JOSH-OTH-DAY 10/16/18 Review of Systems - Review of Systems Constitutional: States: fever - Subjective, malaise, weakness - Generalized EENTM: States: nose congestion - Mild Respiratory: States: cough, short of breath - Mild Cardiology: States: no symptoms reported Gastrointestinal/Abdominal: States: no symptoms reported Genitourinary: States: no symptoms reported Musculoskeletal: States: no symptoms reported Skin: States: no symptoms reported Neurological: States: no symptoms reported Endocrine: States: no symptoms reported All other Systems: No Change from Baseline Past Medical History (General) - Patient Medical History Hx Seizures: No Hx Stroke: Yes - tia's Hx Asthma: No Hx of COPD: No Hx Cardiac Disorders: Yes - A fib Hx Congestive Heart Failure: Yes Hx Pacemaker: No Hx Hypertension: No Hx Thyroid Disease: Yes Hx Diabetes: No Hx Gastroesophageal Reflux: Yes Hx Renal Disease: No Hx Cancer: No Hx of HIV: No Hx Hepatitis C: No Hx MRSA: No MRSA Source:: Wound Surgical History: appendectomy, tonsillectomy, Hysterectomy - Vaccination History Hx Tetanus, Diphtheria Vaccination: Yes Hx Influenza Vaccination: Yes Hx Pneumococcal Vaccination: Yes - Social History Hx Tobacco Use: No Hx Alcohol Use: No Hx Substance Use: No Hx Depression: No Hx Physical Abuse: No Hx Emotional Abuse: No - Activities of Daily Living [facility]Assisted Living (if applicable):: [facility] Family Medical History - Family History Mother Family History: No Known Living Status: Physical Exam - Physical Exam General Appearance: Alert, Frail Eye Exam: bilateral normal Ears, Nose, Throat: hearing grossly normal, normal pharynx, nasal congestion Neck: non-tender, supple Respiratory: no respiratory distress, no accessory muscle use, rhonchi - Mild scattered Cardiovascular/Chest: normal peripheral pulses, regular rate, rhythm, no edema Peripheral Pulses: radial,right: 2+, radial,left: 2+ Gastrointestinal/Abdominal: non tender, soft Rectal Exam: deferred Back Exam: no CVA tenderness, no vertebral tenderness Extremity: non-tender, normal inspection, no pedal edema, normal capillary refill Neurologic: brine purifier II-XII nml as tested, alert, normal mood/affect, oriented x 3 Skin Exam: normal color Comments: Vital Signs - 24 hr 12/01/20 10:08 Temperature 99.7 F H Pulse Rate [ 86 Right Radial] Respiratory 16 Rate Blood Pressure 127/69 [Left Arm] O2 Sat by Pulse 90 L Oximetry Progress - Progress Progress: 12/01/20 11:27 The patient is an 85-year-old female presented emergency room secondary to increased cough and some shortness of breath along with some mild GI symptoms. The patient is found to be hypoxic on room air down to 86% while I interview her at rest. She is not in significant distress. She does correct nicely with 2 L nasal cannula. She did test positive for coronavirus here today. Inflammatory markers are being sent. The patient is already taking Eliquis for her history of atrial fibrillation. Patient is being started on dexamethasone, azithromycin, Rocephin and remdesivir along with the oxygen. Admit for continued care and monitoring. The patient is a resident of a long- term care facility. tabitha braga [id number] - Results/Orders Results/Orders: Rapid coronavirus test is positive. Chest x-ray shows no significant acute pathology. EKG shows normal sinus rhythm 82 bpm. Borderline right axis deviation. Questionable early right bundle branch block. Normal R wave progression otherwise. No ST segment or T wave changes indicative of acute ischemia. Normal QT interval. Laboratory Tests 12/01/20 12/01/20 12/01/20 09:48 09:48 10:24 WBC 4.1 L RBC 4.41 Hgb 12.4 Hct 38.3 MCV 86.7 MCH 28.2 MCHC 32.5 L RDW 14.6 H Plt Count 192 MPV 8.6 Absolute Neuts (auto) 2.00 Absolute Lymphs (auto) 0.70 L Absolute Monos (auto) 1.20 H Absolute Eos (auto) 0.10 Absolute Basos (auto) 0.10 Neutrophils % 48.7 Lymphocytes % 18.4 L Monocytes % 30.3 H Eosinophils % 1.3 Basophils % 1.3 Sodium 139 Potassium 3.7 Chloride 101 Carbon Dioxide 29 Anion Gap 12.7 BUN 11 Creatinine 0.79 BUN/Creatinine Ratio 13.9 Random Glucose 127 H Serum Osmolality 278.5 Calcium 8.8 Total Bilirubin 0.5 AST 29 ALT 16 Alkaline Phosphatase 95 Creatine Kinase 93 CK-MB (CK-2) 0.9 CK-MB (CK-2) % Not Reportable Troponin I < 0.02 B-Natriuretic Peptide 91.0 Serum Total Protein 6.8 Albumin 3.8 Globulin 3.0 Albumin/Globulin Ratio 1.3 Urine Color Yellow Urine Appearance Clear Urine pH 6.0 Ur Specific [place] 1.015 Urine Protein Negative Urine Glucose (UA) Negative Urine Ketones Negative Urine Blood Negative Urine Nitrite Negative Urine Bilirubin Negative Urine Urobilinogen 0.2 Ur Leukocyte Esterase Small H Urine RBC 0 Urine WBC 0 Ur Epithelial Cells 0 Urine Bacteria 0 Departure - Departure Clinical Impression: Pneumonia due to 2019-nCoV Disposition: Admit Patient Departure Forms: ED Discharge - Pt. Copy, Patient Portal Self Enrollment Referrals: Zaid Day MD [Primary Care Provider] - 1-2 Weeks Home Medications: Ambulatory Orders Gabapentin [Neurontin] 300 mg PO HS 02/22/14 Polyethylene Glycol 3350 [Miralax] 17 gm PO AM 02/22/14 Digoxin 0.125 mg PO DAILY #0 tab 02/23/14 Sotalol HCl 80 mg PO BID #0 tab 02/23/14 Apixaban [Eliquis] 5 mg PO BID 10/16/18 Calcium Carb 500Mg-Vitamin D [Oscal 500 + D] 500 mg PO DAILY 10/16/18 Diphenhydramine HCl 25 mg PO BEDTIME 10/16/18 Duloxetine HCl 30 mg PO BID 10/16/18 Furosemide [Lasix] 40 mg PO DAILY 10/16/18 HYDROcodone 10MG/APAP 325MG [[place] 10/325] 1 tab PO QID PRN 10/16/18 Hydroxyzine HCl 25 mg PO Q4HR PRN 10/16/18 Multiple Vitamin [Multi Vitamin] 1 tab PO DAILY 10/16/18 Omeprazole [Omeprazole Dr] 40 mg PO BID 10/16/18 Potassium Gluconate 595 mg PO DAILY 10/16/18 Prednisone 5 mg PO JOSH-OTH-DAY 10/16/18 Decision To Admit - Decistion To Admit Decision to Admit Reason: Medical Nature Decision to Admit Date: 12/01/20 Decision to Admit Time: 11:29
--- NOTE | 2020-12-01 12:05 | HP ---
SUPERVISING PHYSICIAN: Tavo Jerry MD CHIEF COMPLAINT: Shortness of breath, body aches and cough. HISTORY OF PRESENT ILLNESS: This is an 85-year-old female who lives at [facility] and presented to the Emergency Room with mild cough, shortness of breath over the last 2 to 3 days and possible low grade fevers. She has had some nausea, but no vomiting, decreased oral intake. She has had 1 to 2 episodes of diarrhea as well. Initial O2 saturations in the ER were okay, in fact, about 99%, but then while the ER physician was interviewing her, it dropped to about 86%. She was placed on O2 at that time. Due to her desaturation, she was referred for admission. She was given dexamethasone, azithromycin, Rocephin and Remdesivir in the Emergency Room. PAST MEDICAL HISTORY: 1. Gastroesophageal reflux disease. 2. Hypertension. 3. Atrial fibrillation on anticoagulation. 4. Diverticulosis. 5. Hiatal hernia. 6. Polymyalgia rheumatica. 7. Rheumatoid arthritis. 8. Spinal stenosis. 9. Thyroid nodules. 10. Depression. 11. Chronic pain syndrome. 12. Mild congestive heart failure. PAST SURGICAL HISTORY: 1. Appendectomy. 2. . 3. ORIF of the right ankle. 4. Hysterectomy. 5. Tonsillectomy and adenoidectomy. 6. Exploratory laparotomy. 7. Partial thyroidectomy. 8. Epidural steroid injection of the lumbar spine. MEDICATIONS: Please see medication reconciliation list once verified in the computer. ALLERGIES: NO KNOWN DRUG ALLERGIES. FAMILY HISTORY: Cancer, hyperlipidemia, type diabetes mellitus. SOCIAL HISTORY: Nondrinker, nonsmoker, no illicit drugs. REVIEW OF SYSTEMS: CONSTITUTIONAL: Positive for fever, chills and fatigue. HEENT: Positive for headache. No nasal congestion or throat pain. RESPIRATORY: Positive for shortness of breath and cough. No hemoptysis or pleuritic chest pain. CARDIOVASCULAR: No chest pain, palpitations or peripheral edema. GASTROINTESTINAL: Positive for nausea, no vomiting. Positive for diarrhea, no constipation or abdominal pain. GENITOURINARY: No dysuria, frequency or flank pain. ENDOCRINE: No polydipsia, polyuria or polyphagia. No heat or cold intolerance. MUSCULOSKELETAL: No joint pain, joint swelling or muscle cramps, but she does have chronic back pain. NEUROLOGIC: No syncope, paresthesias or seizures. PHYSICAL EXAMINATION: VITAL SIGNS: Blood pressure 136/72, heart rate 87, respiratory rate 18, temperature 98.5, oxygen saturation 94% on room air at this time. GENERAL: Ms. Carnes is an 85-year-old female who is in no active distress. NEUROLOGIC: The patient is alert. LUNGS: Clear to auscultation bilaterally. CARDIOVASCULAR: Irregular rate and rhythm. Normal S1, S2. ABDOMEN: Soft. Positive bowel sounds. GENITOURINARY: Deferred. EXTREMITIES: Lower extremities with no edema. LABORATORY: Labs unremarkable. RADIOLOGY: She had an abdominal series which showed a clear chest x-ray and no abdominal pathology on the abdominal films. IMPRESSION: 1. Hypoxia secondary to COVID pneumonitis. 2. Hypertension. 3. Atrial fibrillation on chronic anticoagulation therapy. 4. History of polymyalgia rheumatica and rheumatoid arthritis. 5. History of mild congestive heart failure, but no acute exacerbation. PLAN: The patient will be admitted and placed on empiric Remdesivir, dexamethasone as well as empiric antibiotics. We will place her on scheduled bronchodilator therapy as well as bronchial hygiene. We will recheck serial labs as needed. We will wean oxygen as tolerated. We will evaluate daily for ability to be discharged. [facility][id number] [facility]
[2020-12-01] MEDS ORDERED: SODIUM CHLORIDE 0.9% (FLUSH) 10 ML SYG IV PRN (17:23)
[2020-12-01] MEDS ORDERED: hydrOXYzine HCl 25 MG TAB PO PRN (17:27)
[2020-12-01] MEDS ORDERED: ENOXAPARIN SODIUM 40 MG/0.4 ML SYG SUBCU SCH (17:30)
[2020-12-01] MEDS ORDERED: IV SET AND CAP CHANGE INJ INJ SCH (17:30)
[2020-12-01] MEDS ORDERED: diphenhydrAMINE HCL 25 MG CAP ONE (19:32)
[2020-12-01] MEDS: ALBUTEROL INHALER 64 PUFF/8GM INH SCH (20:43)
[2020-12-01] MEDS: GABAPENTIN 300 MG CAP PO SCH (20:52)
[2020-12-01] MEDS: diphenhydrAMINE HCL 12.5 MG/5 ML UD PO SCH (20:52)
[2020-12-01] MEDS ORDERED: HYDROcodone 10MG/APAP 325MG 1 EA TAB PO SCH (21:00)
[2020-12-01] MEDS: HYDROcodone 10MG/APAP 325MG 1 EA TAB PO SCH (21:03)
[2020-12-02] MEDS: HYDROcodone 10MG/APAP 325MG 1 EA TAB PO SCH ×4 (03:00→21:36)
[2020-12-02] MEDS ORDERED: AZITHROMYCIN IV 500 MG VIAL IVPB ONE (08:32)
[2020-12-02] MEDS ORDERED: SODIUM CHLORIDE 0.9% 250ML 250 ML ONE (08:33)
[2020-12-02] MEDS: ALBUTEROL INHALER 64 PUFF/8GM INH SCH ×4 (08:35→20:55)
[2020-12-02] MEDS: DEXAMETHASONE INJ 10 MG/ML VIAL IV SCH (08:46)
[2020-12-02] MEDS: POLYETHYLENE GLYCOL 3350 17 GM PCKT PO SCH ×2 (08:46→10:31)
[2020-12-02] MEDS: cefTRIAXone SODIUM 1 GM in SODIUM CHL 0.9% 50ML MIN-BAG+ 50 ML IVPB SCH (08:46)
[2020-12-02] MEDS: FUROSEMIDE 40 MG TAB PO SCH (08:47)
[2020-12-02] MEDS: DIGOXIN 0.125 MG TAB PO SCH (08:47)
[2020-12-02] MEDS: SOTALOL 80 MG TAB PO SCH ×2 (08:47→21:36)
[2020-12-02] MEDS: APIXABAN 5 MG TAB PO SCH ×2 (08:47→21:36)
[2020-12-02] MEDS: DULoxetine HCL 30 MG CAP PO SCH (08:47)
[2020-12-02] MEDS: POTASSIUM GLUCONATE PO SCH (08:48)
[2020-12-02] MEDS: AZITHROMYCIN IV 500 MG in SODIUM CHLORIDE 0.9% 250ML 250 ML IVPB SCH (08:52)
[2020-12-02] MEDS: BIFIDOBACTERIUM INFANTIS 4 MG CAP PO SCH (10:34)
[2020-12-02] MEDS: REMDESIVIR 100 MG in SODIUM CHLORIDE 0.9% 250ML 250 ML IVPB SCH (11:31)
--- NOTE | 2020-12-02 13:09 | PN ---
SUPERVISING PHYSICIAN: Tavo Jerry MD DATE: 12/02/20 SUBJECTIVE: The patient states she feels a little bit better than she did yesterday. There is no significant shortness of breath at rest. She still gets a little bit short of breath with exertion. OBJECTIVE: VITAL SIGNS: Blood pressure 115/72, heart rate 68, respiratory rate 15, temperature 97.8, oxygen saturation 96% on room air currently. GENERAL: Ms. Carnes is an 85-year-old female in no active distress. NEUROLOGIC: The patient is alert. LUNGS: Clear to auscultation bilaterally. CARDIOVASCULAR: Regular rate and rhythm. Normal S1, S2. ABDOMEN: Soft. Positive bowel sounds. GENITOURINARY: Deferred. EXTREMITIES: Lower extremities with no edema. LABORATORY: Reviewed. CBC shows white count 3.7, hemoglobin 12.3, platelet count 29, D-dimer less than 131. Chemistry is pretty much unremarkable. CRP 1.1. Dig level 0.7. ASSESSMENT: 1. Hypoxia secondary to COVID-19 pneumonitis. 2. Hypertension. 3. Atrial fibrillation on chronic anticoagulation therapy. 4. History of polymyalgia rheumatica and rheumatoid arthritis. 5. History of mild congestive heart failure with no acute exacerbation. PLAN: Continue Remdesivir, dexamethasone as well as empiric antibiotics. Continue with bronchodilator therapy as well as bronchial hygiene. If she remains off of oxygen and does well with ambulation study, she can probably be discharged tomorrow. #[id number] [facility]
[2020-12-02] MEDS: diphenhydrAMINE HCL 12.5 MG/5 ML UD PO SCH (21:36)
[2020-12-02] MEDS: GABAPENTIN 300 MG CAP PO SCH (21:36)
[2020-12-02] MEDS ORDERED: POLYETHYLENE GLYCOL 3350 17 GM PCKT PO SCH (21:55)
[2020-12-03] MEDS: HYDROcodone 10MG/APAP 325MG 1 EA TAB PO SCH ×2 (03:00→09:00)
--- NOTE | 2020-12-03 07:14 | RAD ---
EXAM: Single view chest. INDICATION: Covid. COMPARISON: Chest x-ray: 02/22/2014. FINDINGS: Cardiac silhouette: Unremarkable. Rebekah: Unremarkable. Lobar consolidation: None. Pleural effusion: None. Pneumothorax: None. Other: None. Bones: Unremarkable. Other: None. IMPRESSION: No pulmonary opacities identified. Please note that chest radiographs have low sensitivity for subtle groundglass opacities Electronically signed by: Dipak Gonzalez MD 12/03/2020 7:12 AM [facility]
[2020-12-03] MEDS ORDERED: POTASSIUM CHLORIDE 20 MEQ TAB PO ONE (08:23)
[2020-12-03] MEDS: cefTRIAXone SODIUM 1 GM in SODIUM CHL 0.9% 50ML MIN-BAG+ 50 ML IVPB SCH (09:00)
[2020-12-03] MEDS: DEXAMETHASONE INJ 10 MG/ML VIAL IV SCH (09:00)
[2020-12-03] MEDS: SOTALOL 80 MG TAB PO SCH (09:00)
[2020-12-03] MEDS: FUROSEMIDE 40 MG TAB PO SCH (09:01)
[2020-12-03] MEDS: DIGOXIN 0.125 MG TAB PO SCH (09:01)
[2020-12-03] MEDS: BIFIDOBACTERIUM INFANTIS 4 MG CAP PO SCH (09:01)
[2020-12-03] MEDS: DULoxetine HCL 30 MG CAP PO SCH (09:01)
[2020-12-03] MEDS: APIXABAN 5 MG TAB PO SCH (09:02)
[2020-12-03] MEDS: POTASSIUM GLUCONATE PO SCH (09:03)
[2020-12-03] MEDS: AZITHROMYCIN IV 500 MG in SODIUM CHLORIDE 0.9% 250ML 250 ML IVPB SCH (09:03)
[2020-12-03] MEDS: ALBUTEROL INHALER 64 PUFF/8GM INH SCH ×2 (09:15→13:20)
[2020-12-03 10:32] VITALS: O2SAT 96
[2020-12-03] MEDS: REMDESIVIR 100 MG in SODIUM CHLORIDE 0.9% 250ML 250 ML IVPB SCH (11:24)
[2020-12-03 12:13] VITALS: BP 123/76; TEMP 97.8
--- NOTE | 2020-12-04 11:00 | DS ---
SUPERVISING PHYSICIAN: Tavo Jerry MD DISCHARGE DIAGNOSIS: 1. Hypoxia secondary to COVID-19 pneumonitis. 2. Hypertension. 3. Atrial fibrillation on chronic anticoagulation therapy. 4. History of polymyalgia rheumatica and rheumatoid arthritis. 5. History of mild congestive heart failure with no acute exacerbation. HISTORY OF PRESENT ILLNESS: This is an 85-year-old female who lives at [facility]. She came to the Emergency Room with mild cough and shortness of breath over the last 2 to 3 days. It had worsened and she also had questionable low grade fever. She has had some nausea, but no vomiting, just decreased oral intake. It was reported that she had 1 to 2 episodes of diarrhea. Initial O2 saturations in the ER were okay, in fact, about 99%, but later it dropped to 86% with exertion. She was placed on oxygen at that time. Due to her desaturation, she was referred for admission. She was given the routine COVID medications of dexamethasone, azithromycin, Rocephin and Remdesivir in the Emergency Room. HOSPITAL COURSE: The patient was placed in observation in the hospital. She continued on the COVID guidelines including the medications. She was monitored closely per the COVID guidelines. She had aggressive pulmonary hygiene including her albuterol both p.r.n. and scheduled. Labs were followed as well as her vital signs. This morning, she was walking around in her room on room air. She was doing her routine activities of daily living and the lowest her saturations dropped was to 95%. Her vital signs have been stable. Labs have been stable. She will be discharged to [facility] in stable condition. LABORATORY: WBCs are stable at 4,100 with hemoglobin 12.8, hematocrit 39.3. D- dimer is less than 131. Electrolytes are basically within normal limits. This morning, her potassium was slightly low at 3.4 and she got some supplementation. Otherwise, her liver enzymes are within normal limits. BUN 17, creatinine 0.59, C-reactive protein less than 0.8. Urinalysis showed a small amount of urine leukocyte esterase. Digoxin was 0.7. MICROBIOLOGY: Preliminary blood cultures showed no growth after 48 hours. Influenza A and B per PCR were both negative. Final urine culture showed insignificant growth. Nasal swab was positive for COVID. RADIOLOGY: Initial abdominal x-ray showed no acute radiographic abnormality. Chest x-ray showed no pulmonary opacities identified. Please note that the chest radiographs have low sensitivity for subtle ground glass opacities. DISCHARGE PLAN: The patient will be discharged back to [facility] in stable condition. She will also have [facility]. She is being discharged in good condition. She is to resume her previous diet and increase her activity as tolerated. She is to followup with her primary care physician, Dr. Day, within 1 to 2 weeks. In addition to her routine medications, she is also to have Align, cefdinir, dexamethasone, albuterol inhaler and azithromycin. She is to return to the hospital or followup with Dr. Day for any problems or complications. DISCHARGE MEDICATIONS: 1. Hydroxyzine. 2. Sotalol. 3. Prednisone. 4. Potassium gluconate. 5. MiraLAX. 6. Hydrocodone. 7. Gabapentin. 8. Furosemide. 9. Diphenhydramine. 10. Digoxin. 11. Duloxetine. 12. Eliquis. 13. Align. 14. Cefdinir. 15. Dexamethasone. 16. Albuterol inhaler. 17. Azithromycin. #[id number] [facility]
== END 2020-12-03 14:45 ==
LOC: ER 09:20 → MS 12:05
PROVIDERS: ADMIT Nurse Practitioner; ATTEND Nurse Practitioner Acute Care
DX: U07.1 COVID-19 (principal); J12.82 Pneumonia due to coronavirus disease 2019; R09.02 Hypoxemia; I11.0 Hypertensive heart disease with heart failure; I50.9 Heart failure, unspecified; I48.91 Unspecified atrial fibrillation; M35.3 Polymyalgia rheumatica; M06.9 Rheumatoid arthritis, unspecified; K21.9 Gastro-esophageal reflux disease without esophagitis; F32.9 Major depressive disorder, single episode, unspecified; G89.4 Chronic pain syndrome; E07.9 Disorder of thyroid, unspecified; Z79.01 Long term (current) use of anticoagulants; Z79.899 Other long term (current) drug therapy; Z86.73 Personal history of transient ischemic attack (TIA), and cerebral infarction without residual deficits
CPT/HCPCS: 96366 ×2; 96367; 96365; 96375; 96376 ×2; J0696 ×3; J7050 ×9; Q0163 ×2; J1100 ×3; J0456 ×3; 85379 ×3; 80048; 82553; 80053 ×2; 87086; 36415 ×6; 85384 ×2; 81001; 86140 ×3; 85025 ×3; 82550; 87040; 80162; 82728; 83615 ×2; 83735 ×2; 85730 ×2; 85610; 84484; 83880; 83605; 74019; 71045; 94760; 94664; 94640 ×6; 94762; 99285; 93005; G0378; 87502; 87635

== ENCOUNTER 2020-12-08 09:51 | Emergency (ER) | payer MEDICARE, OTHER ==
--- NOTE | 2020-12-08 10:32 | RAD ---
EXAM DESCRIPTION: Chest,1 View CLINICAL HISTORY: 85 years Female, COVID+, cough COMPARISON: December 03, 2020 FINDINGS: One view/radiograph Heart size and pulmonary vessels are within normal limits. There is no pneumothorax or pleural effusion. The lungs are clear bilaterally. The soft tissues are unremarkable. No acute osseous findings. IMPRESSION: No acute cardiopulmonary abnormality. Electronically signed by: Mick Najera MD 12/08/2020 10:31 AM [facility]
--- NOTE | 2020-12-08 11:21 | ED.PDOC ---
History of Present Illness - General Chief Complaint: General Stated Complaint: Weakness, fever Time Seen by Provider: 12/08/20 10:08 - History of Present Illness Initial Comments: Patient has a history of a positive COVID-19 test. The home health nurse today found her with a temperature of 101 degrees. Patient was complaining fever chills and malaise. After taking Tylenol the symptoms have completely resolved. She denies chest pain or shortness of breath. Nurse told her she was dehydrated. Patient does not complain of abdominal pain or nausea vomiting. Timing/Duration: 4-6 hours, other Severity: moderate Improving Factors: nothing Worsening Factors: nothing Associated Symptoms: fever/chills, malaise Allergies/Adverse Reactions: Allergies Codeine Adverse Reaction (Severe, Verified 12/01/20 10:17) Nausea Home Medications: Ambulatory Orders Apixaban [Eliquis] 1 tablet PO BID 12/01/20 DULoxetine HCL [Cymbalta] 1 capsule PO DAILY 12/01/20 Digoxin 1 tablet PO DAILY 12/01/20 Diphenhydramine HCl [Banophen] 12.5 mg PO BEDTIME 12/01/20 Furosemide [Lasix] 1 tablet PO DAILY 12/01/20 Gabapentin [Neurontin] 300 mg PO BEDTIME 12/01/20 HYDROcodone 10MG/APAP 325MG [[place] 10/325] 1 tablet PO QID 12/01/20 Polyethylene Glycol 3350 [Miralax] 1 pack PO DAILY 12/01/20 Potassium Gluconate 1 tablet PO DAILY 12/01/20 Prednisone 1 tablet PO JOSH-OTH-DAY 12/01/20 Sotalol HCl [Sotalol Hydrochloride] 1 tablet PO BID 12/01/20 hydrOXYzine HCl [Atarax] 1 tablet PO Q4H PRN 12/01/20 Albuterol Inhaler [Ventolin Hfa Inhaler] 2 puff INH QID inh 12/03/20 Azithromycin Tab [Zithromax Tab] 250 mg PO QD #4 tab 12/03/20 Bifidobacterium Infantis [Align] 4 mg PO DAILY cap 12/03/20 Cefdinir 300 mg PO BID #14 capsule 12/03/20 Dexamethasone Tab [Decadron Tab] 4 mg PO DAILY #8 tab 12/03/20 Past Medical History (General) - Patient Medical History Hx Seizures: No Hx Stroke: Yes Hx Asthma: No Hx of COPD: No Hx Cardiac Disorders: Yes - A fib Hx Congestive Heart Failure: Yes Hx Pacemaker: No Hx Hypertension: No Hx Thyroid Disease: Yes Hx Diabetes: No Hx Gastroesophageal Reflux: Yes Hx Renal Disease: No Hx Cancer: No Hx of HIV: No Hx Hepatitis C: No Hx MRSA: No MRSA Source:: Wound Surgical History: appendectomy, cholecystectomy, tonsillectomy, Hysterectomy - Vaccination History Hx Tetanus, Diphtheria Vaccination: Yes Hx Influenza Vaccination: Yes Hx Pneumococcal Vaccination: Yes - Social History Hx Tobacco Use: No Hx Alcohol Use: No Hx Substance Use: No Hx Depression: No Hx Physical Abuse: No Hx Emotional Abuse: No Family Medical History - Family History Mother Family History: No Known Living Status: Physical Exam - Physical Exam General Appearance: Alert Eye Exam: bilateral normal Ears, Nose, Throat: normal ENT inspection, other - Slightly dry mucous membranes. Neck: non-tender, supple, other - Moderately dry tongue Respiratory: normal breath sounds, no respiratory distress Cardiovascular/Chest: normal peripheral pulses, regular rate, rhythm Gastrointestinal/Abdominal: normal bowel sounds, non tender, soft Back Exam: normal inspection Extremity: no pedal edema, no calf tenderness Neurologic: chronic care nurse II-XII nml as tested, no motor/sensory deficits Skin Exam: normal color, warm/dry, other - No reduction normal skin turgor Progress - Results/Orders Results/Orders: Vital Signs - 24 hr 12/08/20 12/08/20 10:17 10:31 Temperature 98 F Pulse Rate [ 78 Left Radial] Respiratory 22 30 H Rate Blood Pressure 132/71 [Left Arm] O2 Sat by Pulse 94 L Oximetry Laboratory Results - last 24 hr 12/08/20 12/08/20 10:15 10:15 WBC 11.6 H RBC 4.79 Hgb 13.4 Hct 40.8 MCV 85.1 MCH 27.9 MCHC 32.8 L RDW 14.4 Plt Count 234 MPV 8.2 Absolute Neuts (auto) 9.50 H Absolute Lymphs (auto) 0.60 L Absolute Monos (auto) 1.40 H Absolute Eos (auto) 0.10 Absolute Basos (auto) 0.10 Neutrophils % 81.8 H Lymphocytes % 5.1 L Monocytes % 11.8 H Eosinophils % 0.8 L Basophils % 0.5 Sodium 135 Potassium 3.6 Chloride 98 L Carbon Dioxide 27 Anion Gap 13.6 BUN 18 Creatinine 0.83 BUN/Creatinine Ratio 21.7 H Random Glucose 113 H Serum Osmolality 272.8 L Calcium 8.8 Total Bilirubin 0.5 AST 21 ALT 15 Alkaline Phosphatase 65 Serum Total Protein 6.5 Albumin 3.6 Globulin 2.9 Albumin/Globulin Ratio 1.2 EXAM DESCRIPTION: Chest,1 View CLINICAL HISTORY: 85 years Female, COVID+, cough COMPARISON: December 03, 2020 FINDINGS: One view/radiograph Heart size and pulmonary vessels are within normal limits. There is no pneumothorax or pleural effusion. The lungs are clear bilaterally. The soft tissues are unremarkable. No acute osseous findings. IMPRESSION: No acute cardiopulmonary abnormality. Electronically signed by: Mick Najera MD 12/08/2020 10:31 AM [facility] 11:34 AM: Discussed all findings with patient and son. She states she feels much better now and is amenable to discharge. The patient was offered an IV infusion normal saline but she declined this and will take large amounts of liquids at home to treat her apparent mild dehydration. - EKG/XRAY/CT CT Ordered: No Departure - Departure Clinical Impression: COVID-19, General weakness, Dehydration, mild Time of Disposition: 11:34 Disposition: Discharge to Home or Self Care Condition: Good Departure Forms: ED Discharge - Pt. Copy, Patient Portal Self Enrollment Instructions: Dehydration, Adult (DC), Coronavirus Disease 2019 (COVID-19) (DC) Diet: regular diet, other - Take fluids and large amounts Referrals: Zaid Day MD [Primary Care Provider] - 1-2 Weeks Home Medications: Ambulatory Orders Apixaban [Eliquis] 1 tablet PO BID 12/01/20 DULoxetine HCL [Cymbalta] 1 capsule PO DAILY 12/01/20 Digoxin 1 tablet PO DAILY 12/01/20 Diphenhydramine HCl [Banophen] 12.5 mg PO BEDTIME 12/01/20 Furosemide [Lasix] 1 tablet PO DAILY 12/01/20 Gabapentin [Neurontin] 300 mg PO BEDTIME 12/01/20 HYDROcodone 10MG/APAP 325MG [[place] 10/325] 1 tablet PO QID 12/01/20 Polyethylene Glycol 3350 [Miralax] 1 pack PO DAILY 12/01/20 Potassium Gluconate 1 tablet PO DAILY 12/01/20 Prednisone 1 tablet PO JOSH-OTH-DAY 12/01/20 Sotalol HCl [Sotalol Hydrochloride] 1 tablet PO BID 12/01/20 hydrOXYzine HCl [Atarax] 1 tablet PO Q4H PRN 12/01/20 Albuterol Inhaler [Ventolin Hfa Inhaler] 2 puff INH QID inh 12/03/20 Azithromycin Tab [Zithromax Tab] 250 mg PO QD #4 tab 12/03/20 Bifidobacterium Infantis [Align] 4 mg PO DAILY cap 12/03/20 Cefdinir 300 mg PO BID #14 capsule 12/03/20 Dexamethasone Tab [Decadron Tab] 4 mg PO DAILY #8 tab 12/03/20 Additional Instructions: Return if having increasing shortness of breath, extremely weak, fainting or passing out.Take Tylenol at home for fever aches and chills.
[2020-12-08 12:01] VITALS: BP 113/74; TEMP 98.9; O2SAT 97
== END 2020-12-08 12:01 | disposition home or self-care (01) ==
LOC: ER 09:51
DX: U07.1 COVID-19 (principal); E86.0 Dehydration; K21.9 Gastro-esophageal reflux disease without esophagitis; E07.9 Disorder of thyroid, unspecified; I48.91 Unspecified atrial fibrillation; I50.9 Heart failure, unspecified; Z90.49 Acquired absence of other specified parts of digestive tract; Z86.73 Personal history of transient ischemic attack (TIA), and cerebral infarction without residual deficits; Z79.899 Other long term (current) drug therapy; Z79.01 Long term (current) use of anticoagulants; Z88.5 Allergy status to narcotic agent